=== PATIENT | female | born 1935 | race Caucasian/White ===

== ENCOUNTER 2019-11-10 11:21 | Observation (INO) ==
[2019-11-10] MEDS ORDERED: *HR* Promethazine 25 MG/ML VIAL IVP PRN (13:00)
[2019-11-10] MEDS ORDERED: *HR* OxyCODONE Immed Rel 5 MG TABLET PO PRN ×2 (13:00→18:38)
[2019-11-10] MEDS ORDERED: Acetaminophen IV 1,000 MG/100 ML INFUS..BTL IVPB ONE (13:00)
[2019-11-10] MEDS ORDERED: *HR* HYDROmorphone (PF) 1 MG/ML SYRINGE IVP PRN (13:00)
[2019-11-10] MEDS ORDERED: Ringers Solution, Lactated 1,000 ML IVC SCH (13:00)
[2019-11-10] MEDS ORDERED: CeFAZolin Syr 2,000MG/20 ML 2,000 MG/20 ML SYRINGE IVPB ONE (13:15)
[2019-11-10] MEDS ORDERED: *HR* Propofol 200 MG/20 ML VIAL IVP ONE (14:05)
[2019-11-10] MEDS ORDERED: Lidocaine -MPF 2% 2 ML VIAL ONE (14:05)
[2019-11-10] MEDS ORDERED: *HR* FentaNYL (PF) 100 MCG/2 ML VIAL ONE ×2 (14:05→16:17)
[2019-11-10] MEDS ORDERED: *HR* Rocuronium Bromide 50 MG/5 ML VIAL ONE (14:55)
[2019-11-10] MEDS ORDERED: *HR* Succinylcholine 200 MG/10 ML VIAL IVP ONE (14:55)
[2019-11-10] MEDS ORDERED: *HR* PHENYLEPHRINE 1,000 MCG/10 ML SYRINGE IVP ONE (15:54)
[2019-11-10] MEDS ORDERED: EPHEDrine 50 MG/ML VIAL ONE (16:32)
[2019-11-10] MEDS ORDERED: Morphine Sulfate 2 MG/ML SYRINGE IVP PRN (18:38)
[2019-11-10] MEDS ORDERED: Aspirin Enteric Coated 81 MG Tablet PO SCH (18:38)
[2019-11-10] MEDS ORDERED: Acetaminophen 325 MG TABLET PO PRN (18:38)
[2019-11-10] MEDS ORDERED: Ondansetron 4 MG/2 ML VIAL IVP PRN ×2 (18:38→19:00)
[2019-11-10] MEDS: Ringers Solution, Lactated 1,000 ML IVC SCH (19:25)
[2019-11-10 20:19] LABS: Hematocrit 36.7 % (35.3-44.9)
[2019-11-10] MEDS: *HR* OxyCODONE Immed Rel 5 MG TABLET PO PRN (21:30)
[2019-11-11] MEDS: *HR* OxyCODONE Immed Rel 5 MG TABLET PO PRN ×2 (01:30→16:17)
[2019-11-11 05:41] LABS: Basophils % 0.2 %; Hematocrit 31.6 % (35.3-44.9); Immature Granulocytes % 0.5 % (0-4); Lymphocytes # 0.8 K/mcL (0.6-4.6); Lymphocytes % 12.1 %; Mean Corpuscular HGB Conc 32.6 g/dL (31.6-35.5); Mean Platelet Volume 9.7 fL (9.4-12.4); Monocytes # 0.7 K/mcL (0.0-1.3); Neutrophils # 5.1 K/mcL (1.6-8.9); Platelet Count 225 K/mcL (140-400); Red Blood Count 3.55 M/mcL (3.82-4.97); Red Cell Distribution Width 13.2 % (11.5-14.5); Segmented Neutrophils % 77.2 %; White Blood Count 6.6 K/mcL (4.3-11.1)
[2019-11-11 05:42] LABS: Hemoglobin 10.3 g/dL (11.5-15.4)
[2019-11-11 05:55] LABS: BUN/Creatinine Ratio 14 (6-26); Blood Urea Nitrogen 9 mg/dL (8-23); Calcium 8.6 mg/dL (8.6-10.3); Carbon Dioxide 24 mEq/L (23-29); Chloride 99 mEq/L (98-107); Glucose 142 mg/dL (70-105); Osmolality,Calculated 275 (280-300); Sodium 132 mEq/L (136-145); eGFR For African Americans > 60 (> 60); eGFR For Non-African Americans > 60 (> 60)
[2019-11-11] MEDS: Acetaminophen 325 MG TABLET PO PRN ×3 (08:30→21:50)
[2019-11-11] MEDS: Ringers Solution, Lactated 1,000 ML IVC SCH (15:06)
[2019-11-11] MEDS ORDERED: *HR* OxyCODONE/APAP 5/325 TABLET PO PRN (17:31)
[2019-11-12] MEDS: Acetaminophen 325 MG TABLET PO PRN ×2 (04:17→10:38)
[2019-11-12 06:46] LABS: Hematocrit 30.3 % (35.3-44.9); Hemoglobin 9.7 g/dL (11.5-15.4)
[2019-11-12 11:04] VITALS: BP 123/62
== END 2019-11-12 14:42 | disposition home or self-care (01) ==
LOC: SAMDAY 11:21 → 3ANU 11:21
PROVIDERS: ADMIT Surgery; ATTEND Surgery